=== PATIENT | female | born 1990 ===

== ENCOUNTER 2021-09-09 06:00 | Day surgery (SDC) | payer OTHER ==
[2021-09-09] MEDS ORDERED: MONDOXYNE NL100 MG PO (11:35)
[2021-09-09] MEDS ORDERED: IBU600 MG PO (11:36)
== END 2021-09-09 15:50 | disposition home or self-care (01) ==
LOC: CIR.AMB 06:00
PROVIDERS: ATTEND Obstetrics & Gynecology
DX: D25.0 Submucous leiomyoma of uterus (principal); E03.9 Hypothyroidism, unspecified; E66.01 Morbid (severe) obesity due to excess calories